=== PATIENT | female | born 1995 | race Hispanic/Latino ===

== ENCOUNTER → 2024-08-23 | Outpatient (REF) | payer OTHER | LOC: US 11:36 | PROVIDERS: ATTEND Internal Medicine Gastroenterology | DX: R10.13 Epigastric pain (principal); R10.11 Right upper quadrant pain; R11.2 Nausea with vomiting, unspecified; R74.8 Abnormal levels of other serum enzymes; K76.0 Fatty (change of) liver, not elsewhere classified | CPT/HCPCS: 76700 ==

== ENCOUNTER → 2024-10-31 | Outpatient (REF) | payer OTHER ==
[~2024-10-31] MED LIST: SODIUM CHLORIDE 0.9% 250ML 250 ML ONE
== END ==
LOC: NM 07:36
PROVIDERS: ATTEND Internal Medicine Gastroenterology
DX: R10.11 Right upper quadrant pain (principal); R74.8 Abnormal levels of other serum enzymes; K76.0 Fatty (change of) liver, not elsewhere classified; R11.2 Nausea with vomiting, unspecified
CPT/HCPCS: 78227; A9537; J7050